=== PATIENT | male | born 1990 | race Caucasian/White ===

== ENCOUNTER 2021-08-24 08:26 | Emergency (ER) | payer OTHER ==
[~2021-08-24] VITALS: Ht 172.7 cm; Wt 113.4 kg
[2021-08-24 08:35] VITALS: BP 137/84
--- NOTE | 2021-08-24 09:10 | RAD ---
INDICATION: Reason: foreign object in rectum / Spl. 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 IMPRESSION: Abdomen: Single view obtained. Projecting over the sacrum asymmetric to the right there is a radioluc ency identified measuring approximately 14 x 4 cm. Given the linear appearance with rounded edge a ra diolucent foreign body could have this appearance. Cannot assess for intraperitoneal free air on this single supine radiograph but this can be better evaluated on the already ordered CT of the abdomen a nd pelvis. Nonspecific bowel gas pattern with a mildly prominent loop of small bowel the right-sided the abdomen measuring up to 26 mm. Electronically signed by: Michael Atwood MD (08/24/2021 9:07 AM) [id number]
--- NOTE | 2021-08-24 09:10 | PHYS DOC ---
Past History Past Surgical History: No Surgical History Alcohol Use: None General Adult EDM: Chief Complaint: RECTAL FOREIGN BODY HPI: HPI: 30-year-old male presents with concern for rectal foreign body. The patient states that he stuck an ice cream scoop of his rectum yesterday around noon. It is a hard plastic with a shaped head. There is not a lever mechanism. The chelita ent states that once it was inserted it surprised him and he fell backwards. He landed on a chair and this should have the entire item in his rectum. He has had a little bit of rectal bleeding. It has not come back out. He denies significant pain. Review of Systems: Review of Systems: Constitutional: Denies fever or chills Eyes: Denies change in visual acuity HENT: Denies nasal congestion or sore throat Respiratory: Denies cough or shortness of breath Cardiovascular: Denies chest pain or edema GI: Denies abdominal pain, nausea, vomiting, bloody stools or diarrhea : Rectal foreign body Musculoskeletal: Denies back pain or joint pain Integument: Denies rash Neurologic: Denies headache, focal weakness or sensory changes Endocrine: Denies polyuria or polydipsia Lymphatic: Denies swollen glands Psychiatric: Denies depression or anxiety Allergies: Allergies: Allergies Coded Allergies Type Severity Reaction Last Updated Verified No Known Drug Allergies 08/24/21 No Physical Exam: PE: Constitutional: Well developed, well nourished, morbidly obese, no acute d istress, non-toxic appearance. [] HENT: Normocephalic, atraumatic, bilateral external ears normal, oropharynx moist, no oral exudates, nose normal. [] Eyes: PERRLA, EOMI, conjunctiva normal, no discharge. [] Neck: Normal range of motion, no tenderness, supple, no stridor. [] Cardiovascular: Heart rate regular rhythm, no murmur [] Lungs & Thorax: Bilateral breath sounds clear to auscultation [] Abdomen: Bowel sounds normal, soft, no tenderness, no masses, no pulsatile masses. [] Skin: Warm, dry, no erythema, no rash. [] Back: No tenderness, no CVA tenderness. [] Extremities: No tenderness, no cyanosis, no clubbing, ROM intact, no edema. [] Neurologic: Alert and oriented X 3, normal motor function, normal sensory function, no focal deficits noted. [] Psychologic: Affect normal, judgement normal, mood normal. [] Current Patient Data: Vital Signs: Vital Signs Date Time Temp Pulse Resp B/P (MAP) Pulse Ox O2 Delivery O2 Flow Rate FiO2 08/24/21 08:35 81 18 137/84 (101) 99 EKG: EKG: [] Radiology/Procedures: Radiology/Procedures: [] Impressions: INDICATION: Reason: foreign object in rectum / Spl. 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 IMPRESSION: Abdomen: Single view obtained. Projecting over the sacrum asymmetric to the right there is a radiolucency identified measuring approximately 14 x 4 cm. Given the linear appearance with rounded edge a radiolucent foreign body could have this appearance. Cannot assess for intraperitoneal free air on this single supine radiograph but this can be better evaluated on the already ordered CT of the abdomen and pelvis. Nonspecific bowel gas pattern with a mildly prominent loop of small bowel the right-sided the abdomen measuring up to 26 mm. Electronically signed by: Brittnee Jules MD (08/24/2021 9:07 AM) [id number] DICTATED AND SIGNED BY: BRITTNEE JULES MD DATE: 08/24/21 0904 CC: FRANCES JACOBO DO; GARLAND CALVERT MD ~ Heart Score: C/O Chest Pain: N/A Risk Factors: Risk Factors: DM, Current or recent (<one month) smoker, HTN, HLP, family history of CAD, obesity. Risk Scores: Score 0 - 3: 2.5% MACE over next 6 weeks - Discharge Home Score 4 - 6: 20.3% MACE over next 6 weeks - Admit for Clinical Observation Score 7 - 10: 72.7% MACE over next 6 weeks - Early Invasive Strategies Course & Med Decision Making: Course & Med Decision Making Pertinent Labs and Imaging studies reviewed. (See chart for details) The patient's KUB shows a likely foreign body but placement is not definitive. I have ordered a CT to better assess for location and likelihood of retrieval outside the OR. CT does confirm 10 cm foreign object. I did perform visual inspection with speculum and BARB. I cannot see or feel the object at all. I spoke with general surgery, Dr. Hunter and he has recommended transferring the patient to [facility] for surgery. I spoke with the hospitalist, Dr. Plummer and he has accepted the patient for transfer. The patient is agreement with this plan. [] Dragon Disclaimer: Dragon Disclaimer: This electronic medical record was generated, in whole or in part, using a voice recognition dictation system. Departure Departure: Impression: Primary Impression: Rectal foreign body Disposition: 02 SHORT TERM HOSPITAL Condition: STABLE Referrals: GARLAND CALVERT MD (PCP) FRANCES JACOBO DO Aug 24, 2021 09:10
--- NOTE | 2021-08-24 09:54 | RAD ---
Exam Date: 08/24/2021 9:[address] ABDOMEN+PELVIS WO Indication: Reason: rectal foreign body / Spl. Instructions: / History: . TECHNIQUE: CT examination of the abdomen and pelvis was performed without oral or intravenous contra st. One or more of the following dose reduction techniques were utilized: *Automated exposure control (AEC) *Adjustment of mA and/or kV according to patient size *Use of iterative reconstruction technique *CT scan done according to ALARA, or ALARA/IMAGE GENTLY COMPARISON: Radiograph from earlier the same day FINDINGS: The visualized lung bases are clear. The dome of the liver is partially excluded. The liver, gallbladder, spleen, pancreas, and adrenal glands are normal. The kidneys are normal bilaterally. No hydronephrosis or hydroureter is seen. No urinary tract calc mauricio are seen. Urinary bladder is normal in appearance. Again seen is a hollow oblong foreign body with thin wall within the rectum, measuring approximately 10.5 cm in length and 2.7 x 2.7 cm in transverse dimension. No pneumoperitoneum identified. There is no bowel obstruction or inflammation. The appendix is normal. No significant atherosclerotic calcifications are seen. No lymphadenopathy or ascites is seen. Degenerative changes are seen in the spine. IMPRESSION: Hollow foreign body again noted within the rectum, measuring up to 10.5 cm in length. No pneumoperit oneum, bowel obstruction, or bowel inflammation identified. Electronically signed by: Glenn Cooper MD (08/24/2021 9:52 AM) [id number]
== END 2021-08-24 12:26 | disposition short-term general hospital (02) ==
LOC: ER 08:26
DX: T18.5XXA Foreign body in anus and rectum, initial encounter (principal); Z20.822 Contact with and (suspected) exposure to COVID-19; X58.XXXA Exposure to other specified factors, initial encounter; Y93.89 Activity, other specified; Y92.89 Other specified places as the place of occurrence of the external cause; Y99.8 Other external cause status
CPT/HCPCS: 74018; 74176; 87426; 99285